=== PATIENT | female | born 1990 | race Caucasian/White ===

== ENCOUNTER 2019-04-04 07:44 | Outpatient (RCR) | payer SELFPAY ==
--- NOTE | 2019-07-22 10:36 | HP.PT.NRP ---
HP - Discharge Summary (1) - Patient Information SOPHIA DE LA TORRE was seen in my office for initial evaluation on 04/04/19. The following Plan of Care was established for this patient: - Anticipated Interventions Patient/Client Instruction: Educate patient on: Condition, Plan of Care, Risk Factors, Benefits of Fitness Program For the Purpose of:: To improve decision making, To facilitate caregiver knowledge, To improve self management, To prevent re-injury, To improve ability to perform tasks related to life management, To improve tolerance to ADL's Manual Therapy Techniques to Include: Mobilization, Functional dry needling, Soft tissue mobilization For the Purpose of:: To decrease pain, To decrease swelling/inflammation, To increase ROM, To improve nutrient delivery to tissue, To increase oxygenation perfusion This patient was last seen in our office 04/04/19. Pertinent comments regarding their Physical therapy will appear below: Pt. was seen of DN for her thoracic spine and has not been seen in several months and will be DC from PT at this point in time. At this point I will be discontinuing this patient from physical therapy. I would be happy to see this patient again in the future if found appropriate by the physician. Thank you! Abhay Goncalves, RADHAT
== END 2019-04-04 19:00 | disposition home or self-care (01) ==
LOC: PT 07:44
PROVIDERS: Family Provider Obstetrics & Gynecology Gynecology; PCP Obstetrics & Gynecology Gynecology
DX: R69 Illness, unspecified (principal)

== ENCOUNTER 2022-01-16 13:18 | Outpatient (CLI) | payer OTHER, SELFPAY | END 2022-01-16 23:59 | disposition home or self-care (01) | LOC: LABSPEC 13:23 | PROVIDERS: PCP Obstetrics & Gynecology Gynecology; Visit Provider Obstetrics & Gynecology | DX: J02.9 Acute pharyngitis, unspecified (principal) | CPT/HCPCS: 87880 ==

== ENCOUNTER → 2024-02-13 | Outpatient (CLI) | payer OTHER, SELFPAY ==
--- NOTE | 2024-02-13 10:44 | MRI_ITS ---
EXAM: MR HEAD WITHOUT INTRAVENOUS CONTRAST CLINICAL INDICATION: INTRACTABLE MIGRAINE, NEW OR WORSENIING HEADACHE TECHNIQUE: Multiplanar and multisequence MR images of the brain were obtained without intravenous contrast. COMPARISON: No relevant prior studies available. FINDINGS: BRAIN AND EXTRA-AXIAL SPACES: No significant abnormality. No intra- or extra-axial hemorrhage. No evidence of acute infarct. No intracranial mass or mass effect. There is preservation of the quiroz/white matter interface. Posterior fossa structures are unremarkable. Ventricles are appropriate for age. No hydrocephalus. Basal cisterns are patent. SELLA: No significant abnormality. Normal sella turcica, pituitary gland, infundibular stalk, optic chiasm and hypothalamus. AUDITORY SYSTEM: No significant abnormality. The internal auditory canals are patent. BONES/JOINTS: No significant abnormality. No discrete lytic or blastic abnormalities. SINUSES: Normal as visualized. Clear. MASTOID AIR CELLS: Normal as visualized. Clear. ORBITS: Normal as visualized. Both globes, extraocular muscles, optic nerves and retrobulbar fat appear unremarkable. VASCULATURE: Normal as visualized. Normal flow voids in the major intracranial circulation. MRI/Brain without Contrast IMPRESSION: Negative MRI brain without intravenous contrast. Electronically Signed: Ben Cisse DO at 20:56 EDT ,
== END | disposition home or self-care (01) ==
LOC: MRI 10:31
PROVIDERS: PCP Obstetrics & Gynecology Gynecology
DX: G43.119 Migraine with aura, intractable, without status migrainosus (principal)
CPT/HCPCS: 70551

== ENCOUNTER → 2024-04-11 | Outpatient (CLI) | payer OTHER, SELFPAY ==
--- NOTE | 2024-04-11 15:45 | RAD_ITS ---
INDICATION: PAIN IN LEFT ANKLE JOINTS OF LEFT FOOT EXAMINATION/TECHNIQUE: X-RAY - LEFT XR Ankle Min 3 Views COMPARISON: None. FINDINGS: No acute fracture or malalignment. No blastic or lytic lesions. No degenerative changes are seen. The soft tissues are unremarkable. RAD/Ankle min 3 Views IMPRESSION: No acute radiographic abnormalities. Electronically Signed: Sung Matute MD at 17:36 EDT ,
--- NOTE | 2024-04-11 16:00 | RAD_ITS ---
INDICATION: PAIN EXAMINATION/TECHNIQUE: X-RAY - LEFT XR Foot Min 3 Views COMPARISON: None. FINDINGS: No acute fracture or malalignment. No blastic or lytic lesions. No degenerative changes are seen. The soft tissues are unremarkable. RAD/Foot min 3 Views IMPRESSION: No acute radiographic abnormalities. Electronically Signed: Sung Matute MD at 17:38 EDT ,
== END | disposition home or self-care (01) ==
PROVIDERS: PCP Obstetrics & Gynecology Gynecology; Referring Provider Physician Assistant; Visit Provider Physician Assistant
DX: M25.572 Pain in left ankle and joints of left foot (principal); S93.492A Sprain of other ligament of left ankle, initial encounter
CPT/HCPCS: 73610; 73630

== ENCOUNTER → 2024-05-27 | Outpatient (CLI) | payer OTHER, SELFPAY ==
[2024-05-27 20:42] LABS: Estradiol 63.2 pg/mL; Follicle Stimulating Hormone 8.1 mIU/mL
== END | disposition home or self-care (01) ==
LOC: LABSPEC 19:35 → LAB 19:36
PROVIDERS: PCP Obstetrics & Gynecology Gynecology; Referring Provider Family Medicine; Visit Provider Family Medicine
DX: E34.9 Endocrine disorder, unspecified (principal)
CPT/HCPCS: 36415; 82670; 83001; 84403

== ENCOUNTER → 2024-09-06 | Outpatient (CLI) | payer OTHER, SELFPAY ==
[2024-09-06 20:47] LABS: Estradiol 52.2 pg/mL; Follicle Stimulating Hormone 12.4 mIU/mL; Free T3 2.4 pg/mL (2.18-3.98); T4 Free Direct 0.81 ng/dL (0.76-1.46)
[2024-09-08 09:57] LABS: Vitamin B12 465 pg/mL (211-911); Vitamin D,25 Hydroxy 36.3 ng/mL
[2024-09-09 04:08] LABS: PROGESTERONE 0.3 ng/mL (.)
[2024-09-11 01:07] LABS: T3 Reverse 11.6 ng/dL (9.2-24.1); Thyroid Peroxidase AB 9 IU/mL (0-34)
== END | disposition home or self-care (01) ==
LOC: LAB 18:48
PROVIDERS: PCP Obstetrics & Gynecology Gynecology; Referring Provider Family Medicine; Visit Provider Family Medicine
DX: E06.3 Autoimmune thyroiditis (principal)
CPT/HCPCS: 36415; 82306; 82607; 82627; 82670; 83001; 84144; 84403; 84439; 84443; 84481; 84482; 86376; 82626

== ENCOUNTER → 2024-11-25 | Outpatient (CLI) | payer OTHER, SELFPAY | END | disposition home or self-care (01) | LOC: MTRAD 13:51 | PROVIDERS: PCP Obstetrics & Gynecology Gynecology; Referring Provider Chiropractor; Visit Provider Chiropractor | DX: G43.909 Migraine, unspecified, not intractable, without status migrainosus (principal); M99.01 Segmental and somatic dysfunction of cervical region | CPT/HCPCS: 72040 ==

== ENCOUNTER → 2025-01-09 | Outpatient (CLI) | payer OTHER, SELFPAY ==
[2025-01-16 08:13] LABS: HPV Reflexed? NOT INDICATED
== END | disposition home or self-care (01) ==
LOC: LABSPEC 16:16
PROVIDERS: PCP Obstetrics & Gynecology Gynecology; Referring Provider Obstetrics & Gynecology Gynecology; Visit Provider Obstetrics & Gynecology Gynecology
DX: Z01.411 Encounter for gynecological examination (general) (routine) with abnormal findings (principal)
CPT/HCPCS: 88175; G0145